=== PATIENT | male | born 1975 | race Caucasian/White ===

== ENCOUNTER 2017-09-10 12:42 | Emergency (ER) | payer MEDICAID, OTHER ==
[~2017-09-10] VITALS: Ht 177.8 cm; Wt 103.2 kg
[2017-09-10 12:47] VITALS: BP 132/75
[2017-09-10 13:11] LABS: BASOPHILS % (AUTO) 0.1 % (0-1); EOSINOPHILS # (AUTO) 0.2 X10'3 (0-0.9); EOSINOPHILS % (AUTO) 3.6 % (0-6); HEMATOCRIT 38.5 % (42.0-52.0); HEMOGLOBIN 13.5 g/dl (14.0-17.9); LYMPHOCYTES # (AUTO) 1.2 X10'3 (1.1-4.8); MEAN CORPUSCULAR HEMOGLOBIN 34.1 PG (27.0-31.0); MEAN CORPUSCULAR VOLUME 97.6 FL (78-98); MEAN PLATELET VOLUME 6.4 FL (7.4-10.4); MONOCYTES # (AUTO) 0.6 X10'3 (0-0.9); MONOCYTES % (AUTO) 10.6 % (2-12); NEUTROPHILS # (AUTO) 3.8 X10'3 (1.8-7.7); NEUTROPHILS % (AUTO) 64.7 % (42-75); PLATELET COUNT 362 X10'3 (140-440); RED BLOOD COUNT 3.94 X10'6 (4.70-6.10); RED CELL DISTRIBUTION WIDTH 13.3 % (11.5-14.5); WHITE BLOOD COUNT 5.8 X10'3 (4.5-11.0)
[2017-09-10 13:15] LABS: CLARITY,URINE CLEAR (Clear); COLOR,URINE STRAW (Yellow); GLUCOSE, URINE NEGATIVE (Neg); KETONES,URINE NEGATIVE (Neg); LEUKOCYTE ESTERASE ,URINE NEGATIVE (Neg); NITRITES, URINE NEGATIVE (Neg); OCCULT BLOOD,URINE NEGATIVE (Neg); PROTEIN,URINE NEGATIVE (Neg); UROBILINOGEN,URINE 0.2 E.U/dL (0.2-1.0)
[2017-09-10 13:28] LABS: UA COLLECTION TYPE CLN CATCH MIDSTREAM
[2017-09-10 13:29] LABS: PROTHROMBIN TIME 10.4 SECONDS (9.0-12.0)
[2017-09-10 13:35] LABS: ALANINE AMINOTRANSFERASE 28 U/L (12-78); ALBUMIN 3.1 G/DL (3.4-5.0); ALBUMIN/GLOBULIN RATIO 0.8 (1.1-1.5); ALKALINE PHOSPHATASE 62 IU/L (46-116); ANION GAP 8 (8-16); ASPARTATE AMINO TRANSFERASE 23 U/L (10-37); BILIRUBIN,TOTAL 0.5 MG/DL (0.1-1.0); BLOOD UREA NITROGEN 9 MG/DL (7-18); CALCIUM 8.7 MG/DL (8.5-10.1); CHLORIDE 100 MMOL/L (99-107); CREATININE 0.82 MG/DL (0.60-1.10); GLUCOSE 107 MG/DL (70-104); POTASSIUM 3.9 MMOL/L (3.5-5.1); SODIUM 137 MMOL/L (135-145); TOTAL CARBON DIOXIDE 28.9 MMOL/L (24-32); TOTAL PROTEIN 6.9 G/DL (6.4-8.2); eGFR > 90 ML/MIN
== END 2017-09-10 14:24 | disposition home or self-care (01) ==
LOC: ER 12:43
DX: R07.81 Pleurodynia (principal)
CPT/HCPCS: 36415; 71100; 80053; 81003; 85025; 85610; 99285

== ENCOUNTER 2019-07-06 17:15 | Emergency (ER) | payer MEDICAID ==
[~2019-07-06] VITALS: Ht 177.8 cm; Wt 97.7 kg
[~2019-07-06 17:15] MED LIST: DOXY100T2 PO
--- NOTE | 2019-07-06 17:56 | NUR ---
Poison control contacted and received following recommendations: Monitor observe pt for next 5-6 hours for respiratory depressio, hypotension and seizures. Draw Tylenol level after 4 hours from reported time of ingestion and call back for further recommendtions if level >50. Provider Anderson Coleman [employer] provided recommendations.
[2019-07-06] MEDS ORDERED: ondansetron 4mg rapidly disintigrating tab PO ONE (19:00)
[2019-07-06 19:18] LABS: BASOPHILS % (AUTO) 0.2 % (0-1); EOSINOPHILS # (AUTO) 0.1 X10'3 (0-0.9); EOSINOPHILS % (AUTO) 0.7 % (0-6); HEMATOCRIT 51.6 % (42.0-52.0); HEMOGLOBIN 17.9 g/dl (14.0-17.9); LYMPHOCYTES # (AUTO) 1.8 X10'3 (1.1-4.8); LYMPHOCYTES % (AUTO) 17.5 % (21-51); MEAN CORPUSCULAR HEMOGLOBIN 34.3 PG (27.0-31.0); MEAN CORPUSCULAR HGB CONC 34.7 g/dL (33.0-36.5); MEAN CORPUSCULAR VOLUME 98.9 FL (78-98); MEAN PLATELET VOLUME 6.8 FL (7.4-10.4); MONOCYTES # (AUTO) 0.9 X10'3 (0-0.9); MONOCYTES % (AUTO) 9.2 % (2-12); NEUTROPHILS # (AUTO) 7.4 X10'3 (1.8-7.7); NEUTROPHILS % (AUTO) 72.4 % (42-75); PLATELET COUNT 289 X10'3 (140-440); RED BLOOD COUNT 5.22 X10'6 (4.70-6.10); RED CELL DISTRIBUTION WIDTH 13.2 % (11.5-14.5); WHITE BLOOD COUNT 10.2 X10'3 (4.5-11.0)
[2019-07-06 19:22] LABS: CLARITY,URINE CLEAR (Clear); COLOR,URINE YELLOW (Yellow); GLUCOSE, URINE NEGATIVE (Neg); KETONES,URINE NEGATIVE (Neg); LEUKOCYTE ESTERASE ,URINE NEGATIVE (Neg); NITRITES, URINE NEGATIVE (Neg); OCCULT BLOOD,URINE NEGATIVE (Neg); PROTEIN,URINE NEGATIVE (Neg); UROBILINOGEN,URINE 0.2 E.U/dL (0.2-1.0)
[2019-07-06] MEDS ORDERED: NO HOME MEDS (19:24)
[2019-07-06 19:26] LABS: UA COLLECTION TYPE VOIDED
[2019-07-06 19:35] LABS: URINE AMPHETAMINE SCREEN NEGATIVE (Neg); URINE BARBITUATE SCREEN NEGATIVE (Neg); URINE BENZODIAZEPINES SCREEN POSITIVE (Neg); URINE CANNABINOID SCREEN NEGATIVE (Neg); URINE COCAINE SCREEN NEGATIVE (Neg); URINE METHADONE SCREEN NEGATIVE (Neg); URINE OPIATE SCREEN NEGATIVE (Neg); URINE PHENCYCLIDINE SCREEN NEGATIVE (Neg)
--- NOTE | 2019-07-06 19:37 | NUR ---
Pt. transferred to OF bed 25 from ED room 14 at this time via wheelchair.
[2019-07-06 20:27] LABS: ACETAMINOPHEN 22.2 UG/ML (10-30); ALANINE AMINOTRANSFERASE 48 U/L (12-78); ALBUMIN 3.8 G/DL (3.4-5.0); ALBUMIN/GLOBULIN RATIO 0.9 (1.1-1.5); ALKALINE PHOSPHATASE 96 IU/L (46-116); ANION GAP 12 (8-16); ASPARTATE AMINO TRANSFERASE 34 U/L (10-37); BLOOD UREA NITROGEN 7 MG/DL (7-18); CALCIUM 9.6 MG/DL (8.5-10.1); CHLORIDE 101 MMOL/L (99-107); CREATININE 0.87 MG/DL (0.60-1.10); ETHANOL < 0.010 GM/DL (0.0-0.010); GLUCOSE 102 MG/DL (70-104); POTASSIUM 3.8 MMOL/L (3.5-5.1); SODIUM 137 MMOL/L (135-145); TOTAL CARBON DIOXIDE 24.3 MMOL/L (24-32); TOTAL PROTEIN 8.1 G/DL (6.4-8.2); eGFR > 90 ML/MIN
[2019-07-06 20:34] LABS: VALPROATE < 3.0 UG/ML (50-100)
[2019-07-07 00:01] LABS: ACETAMINOPHEN 6.5 UG/ML (10-30); ALANINE AMINOTRANSFERASE 48 U/L (12-78); ALBUMIN 3.6 G/DL (3.4-5.0); ALBUMIN/GLOBULIN RATIO 0.9 (1.1-1.5); ALKALINE PHOSPHATASE 90 IU/L (46-116); ASPARTATE AMINO TRANSFERASE 28 U/L (10-37); BILIRUBIN,DIRECT 0.2 MG/DL (0-0.3); BILIRUBIN,TOTAL 0.9 MG/DL (0.1-1.0); TOTAL PROTEIN 7.4 G/DL (6.4-8.2)
--- NOTE | 2019-07-07 01:24 | NUR ---
Follow up call received from [facility]. No further recommendations made at this time.
--- NOTE | 2019-07-07 04:25 | NUR ---
Spoke with Dr. Almeida about pt's stable VS and current status. Dr. cerrato pt to be off observation.
--- NOTE | 2019-07-07 07:00 | NUR ---
pt is resting. no concerns at this time
--- NOTE | 2019-07-07 08:00 | NUR ---
pt is resting. no concerns at this time
--- NOTE | 2019-07-07 09:00 | NUR ---
pt is resting. no concerns at this time
--- NOTE | 2019-07-07 10:14 | NUR ---
pt's father is visiting
[2019-07-07] MEDS ORDERED: nicotine 21mg patch - 24 hr TD ONE (10:15)
--- NOTE | 2019-07-07 11:00 | NUR ---
pt is resting. no concerns at this time. family at bedside.
--- NOTE | 2019-07-07 12:00 | NUR ---
pt is resting. no concerns at this time. family at bedside
--- NOTE | 2019-07-07 13:00 | NUR ---
pt is resting. no concerns at this time. family at bedside
--- NOTE | 2019-07-07 14:00 | NUR ---
pt is resting. no concerns at this time. family at bedside
[2019-07-07] MEDS ORDERED: ibuprofen tablet 400 MG TABLET PO PRN (14:50)
--- NOTE | 2019-07-07 15:01 | NUR ---
Patient sitting up on edge of bed, no signs of distress noted. Given motrin PRN for pain per MD order (See EMAR).
--- NOTE | 2019-07-07 16:00 | NUR ---
pt is resting in his room
--- NOTE | 2019-07-07 17:00 | NUR ---
pt is resting in his bed. no issues at this time. just waiting placement
--- NOTE | 2019-07-07 18:28 | NUR ---
recvd report, pt is sitting in bed eating dinner. Pt states he is very depressed and suicidal, "I guess they wanna send me to the crazy house, where suicidal people go, I probably should have lied but I told them the truth about how Im feeling." Pt is depressed, hopeless, linear thought process, awaiting placement.
[2019-07-07] MEDS: traZODone 50mg tablet PO SCH ×2 (20:15→21:22)
--- NOTE | 2019-07-07 21:23 | NUR ---
pt c/o not being able to sleep, prn trazadone given and repeated, pt states he feels it is helping with depression "Well I guess I just laughed but Im feeling frustrated that I cant sleep." pt is laying in bed reading a book
--- NOTE | 2019-07-07 22:26 | NUR ---
recvd call from [facility], pt has been accepted at [facility] in the morning, per Dr Brody.
--- NOTE | 2019-07-07 22:30 | NUR ---
pt laying in bed sleeping no s/s distress
--- NOTE | 2019-07-08 00:37 | NUR ---
Pt is restless, sleep is interrupted he wakes up and reads for a little bit and goes back to sleep.
--- NOTE | 2019-07-08 02:30 | NUR ---
pt laying on his left side rr even and unlabored no s/s distress
--- NOTE | 2019-07-08 04:58 | NUR ---
Pt is awake using the restroom.
[2019-07-08 05:52] VITALS: BP 133/98
== END 2019-07-08 09:39 | disposition home or self-care (01) ==
LOC: ER 17:16
DX: R45.851 Suicidal ideations (principal); F31.9 Bipolar disorder, unspecified; F10.10 Alcohol abuse, uncomplicated; Y90.0 Blood alcohol level of less than 20 mg/100 ml
CPT/HCPCS: 36415; 80053; 80076; 80164; 80178; 80305; 80320; 80329; 81003; 84443; 85025; 93005; 99285

== ENCOUNTER 2019-10-17 13:20 | Emergency (ER) | payer MEDICAID ==
[~2019-10-17] VITALS: Ht 177.8 cm; Wt 90.9 kg
[~2019-10-17 13:20] MED LIST changes: +ATOR40TA71 PO; -DOXY100T2 PO; +HYDR50TA65 PO; +NO HOME MEDS
[2019-10-17 13:23] VITALS: BP 168/100
== END 2019-10-17 13:56 | disposition left against medical advice (07) ==
LOC: ER 13:20
DX: F41.9 Anxiety disorder, unspecified (principal); Z53.21 Procedure and treatment not carried out due to patient leaving prior to being seen by health care provider

== ENCOUNTER 2019-10-23 10:05 | Emergency (ER) | payer MEDICAID ==
[~2019-10-23] VITALS: Ht 177.8 cm; Wt 9.1 kg
[2019-10-23 10:58] LABS: BASOPHILS % (AUTO) 0.1 % (0-1); EOSINOPHILS # (AUTO) 0.1 X10'3 (0-0.9); EOSINOPHILS % (AUTO) 0.8 % (0-6); HEMATOCRIT 46.4 % (42.0-52.0); LYMPHOCYTES # (AUTO) 1.1 X10'3 (1.1-4.8); LYMPHOCYTES % (AUTO) 14.9 % (21-51); MEAN CORPUSCULAR HEMOGLOBIN 34.3 PG (27.0-31.0); MEAN CORPUSCULAR HGB CONC 34.5 g/dL (33.0-36.5); MEAN CORPUSCULAR VOLUME 99.3 FL (78-98); MEAN PLATELET VOLUME 6.5 FL (7.4-10.4); MONOCYTES # (AUTO) 0.8 X10'3 (0-0.9); MONOCYTES % (AUTO) 10.6 % (2-12); NEUTROPHILS # (AUTO) 5.5 X10'3 (1.8-7.7); NEUTROPHILS % (AUTO) 73.6 % (42-75); PLATELET COUNT 345 X10'3 (140-440); RED BLOOD COUNT 4.68 X10'6 (4.70-6.10); RED CELL DISTRIBUTION WIDTH 14.4 % (11.5-14.5); WHITE BLOOD COUNT 7.5 X10'3 (4.5-11.0)
[2019-10-23 11:08] LABS: ALANINE AMINOTRANSFERASE 41 U/L (12-78); ALBUMIN 3.3 G/DL (3.4-5.0); ALBUMIN/GLOBULIN RATIO 0.8 (1.1-1.5); ALKALINE PHOSPHATASE 110 IU/L (46-116); ANION GAP 7 (8-16); ASPARTATE AMINO TRANSFERASE 41 U/L (10-37); BILIRUBIN,TOTAL 1.1 MG/DL (0.1-1.0); BLOOD UREA NITROGEN 9 MG/DL (7-18); CALCIUM 9.1 MG/DL (8.5-10.1); CHLORIDE 100 MMOL/L (99-107); CREATININE 1.12 MG/DL (0.60-1.10); GLUCOSE 119 MG/DL (70-104); POTASSIUM 4.2 MMOL/L (3.5-5.1); SODIUM 137 MMOL/L (135-145); TOTAL CARBON DIOXIDE 30.4 MMOL/L (24-32); TOTAL PROTEIN 7.4 G/DL (6.4-8.2); eGFR 71 ML/MIN
[2019-10-23 11:36] LABS: PARTIAL THROMBOPLASTIN TIME 27 SECONDS (22-32)
[2019-10-23 12:10] VITALS: BP 152/99
== END 2019-10-23 12:08 | disposition home or self-care (01) ==
LOC: ER 10:05
DX: F10.239 Alcohol dependence with withdrawal, unspecified (principal); I10 Essential (primary) hypertension; R19.7 Diarrhea, unspecified; R42 Dizziness and giddiness; Z79.899 Other long term (current) drug therapy; Y90.9 Presence of alcohol in blood, level not specified
CPT/HCPCS: 36415; 71045; 80053; 84484; 85025; 85610; 85730; 93005; 99285

== ENCOUNTER 2020-01-31 08:53 | Emergency (ER) | payer MEDICAID ==
[~2020-01-31] VITALS: Ht 157.5 cm; Wt 90.9 kg
[2020-01-31 08:59] VITALS: BP 154/103
== END 2020-01-31 09:50 | disposition left against medical advice (07) ==
LOC: ER 08:54
DX: R29.810 Facial weakness (principal); F41.0 Panic disorder [episodic paroxysmal anxiety]; Z98.890 Other specified postprocedural states; Z79.899 Other long term (current) drug therapy
CPT/HCPCS: 99281

== ENCOUNTER 2020-06-13 23:15 | Emergency (ER) | payer MEDICAID ==
[~2020-06-13] VITALS: Ht 177.8 cm; Wt 93.1 kg
--- NOTE | 2020-06-13 23:34 | NUR ---
MOTHER ADILSON [phone] FATHER GREGORY [phone]
[2020-06-14 00:05] LABS: BASOPHILS % (AUTO) 0.4 % (0-1); EOSINOPHILS # (AUTO) 0.1 X10'3 (0-0.9); EOSINOPHILS % (AUTO) 1.8 % (0-6); HEMATOCRIT 41.3 % (42.0-52.0); HEMOGLOBIN 14.2 g/dl (14.0-17.9); LYMPHOCYTES # (AUTO) 2.4 X10'3 (1.1-4.8); LYMPHOCYTES % (AUTO) 31.8 % (21-51); MEAN CORPUSCULAR HEMOGLOBIN 34.3 PG (27.0-31.0); MEAN CORPUSCULAR HGB CONC 34.4 g/dL (33.0-36.5); MEAN CORPUSCULAR VOLUME 99.8 FL (78-98); MEAN PLATELET VOLUME 7.2 FL (7.4-10.4); MONOCYTES # (AUTO) 0.8 X10'3 (0-0.9); MONOCYTES % (AUTO) 10.3 % (2-12); NEUTROPHILS # (AUTO) 4.1 X10'3 (1.8-7.7); NEUTROPHILS % (AUTO) 55.7 % (42-75); PLATELET COUNT 301 X10'3 (140-440); RED BLOOD COUNT 4.14 X10'6 (4.70-6.10); WHITE BLOOD COUNT 7.5 X10'3 (4.5-11.0)
[2020-06-14 00:19] LABS: ALANINE AMINOTRANSFERASE 51 U/L (12-78); ALBUMIN 3.5 G/DL (3.4-5.0); ALBUMIN/GLOBULIN RATIO 0.9 (1.1-1.5); ALKALINE PHOSPHATASE 99 IU/L (46-116); ANION GAP 7 (8-16); ASPARTATE AMINO TRANSFERASE 33 U/L (10-37); BILIRUBIN,TOTAL 0.4 MG/DL (0.1-1.0); BLOOD UREA NITROGEN 19 MG/DL (7-18); BUN/CREATININE RATIO 17.6 (5.4-32.0); CALCIUM 8.9 MG/DL (8.5-10.1); CHLORIDE 103 MMOL/L (99-107); CREATININE 1.08 MG/DL (0.60-1.10); GLUCOSE 115 MG/DL (70-104); POTASSIUM 3.7 MMOL/L (3.5-5.1); SODIUM 136 MMOL/L (135-145); TOTAL CARBON DIOXIDE 26.1 MMOL/L (24-32); TOTAL PROTEIN 7.2 G/DL (6.4-8.2); eGFR 74 ML/MIN
[2020-06-14] MEDS ORDERED: METO-539 PO ×2 (00:24→01:08)
[2020-06-14] MEDS ORDERED: metoprolol tartrate 50mg tablet PO ONE (00:25)
[2020-06-14 01:41] VITALS: BP 129/88
== END 2020-06-14 01:42 | disposition home or self-care (01) ==
LOC: ER 23:16
DX: I10 Essential (primary) hypertension (principal); I51.9 Heart disease, unspecified; F41.9 Anxiety disorder, unspecified; F31.9 Bipolar disorder, unspecified; F17.200 Nicotine dependence, unspecified, uncomplicated; F12.90 Cannabis use, unspecified, uncomplicated; Z98.890 Other specified postprocedural states; Z72.89 Other problems related to lifestyle; Z79.899 Other long term (current) drug therapy
CPT/HCPCS: 36415; 71045; 80053; 83880; 84484; 85025; 93005; 99285

== ENCOUNTER → 2021-03-27 | Emergency (ER) | payer MEDICAID ==
[~2021-03-27] VITALS: Ht 177.8 cm; Wt 100.0 kg
[2021-03-27 02:17] VITALS: BP 160/111
== END | disposition left against medical advice (07) ==
LOC: ER 02:12
DX: R00.2 Palpitations (principal); Z53.21 Procedure and treatment not carried out due to patient leaving prior to being seen by health care provider
CPT/HCPCS: 71045; 93005

== ENCOUNTER 2021-04-07 13:58 | Emergency (ER) | payer MEDICAID ==
[~2021-04-07] VITALS: Ht 177.8 cm; Wt 102.0 kg
[2021-04-07 15:31] VITALS: BP 160/104
[2021-04-07 16:07] LABS: BASOPHILS % (AUTO) 0.3 % (0-1); EOSINOPHILS % (AUTO) 0.1 % (0-6); HEMATOCRIT 45.6 % (42.0-52.0); HEMOGLOBIN 15.5 g/dl (14.0-17.9); LYMPHOCYTES # (AUTO) 1.9 X10'3 (1.1-4.8); LYMPHOCYTES % (AUTO) 22.5 % (21-51); MEAN CORPUSCULAR HEMOGLOBIN 34.5 PG (27.0-31.0); MEAN CORPUSCULAR VOLUME 101.4 FL (78-98); MEAN PLATELET VOLUME 6.8 FL (7.4-10.4); MONOCYTES # (AUTO) 0.7 X10'3 (0-0.9); NEUTROPHILS # (AUTO) 5.6 X10'3 (1.8-7.7); NEUTROPHILS % (AUTO) 68.1 % (42-75); PLATELET COUNT 277 X10'3 (140-440); RED CELL DISTRIBUTION WIDTH 14.1 % (11.5-14.5); WHITE BLOOD COUNT 8.3 X10'3 (4.5-11.0)
[2021-04-07 16:16] LABS: ALANINE AMINOTRANSFERASE 67 U/L (12-78); ALBUMIN 3.8 G/DL (3.4-5.0); ALBUMIN/GLOBULIN RATIO 0.8 (1.1-1.5); ALKALINE PHOSPHATASE 101 IU/L (46-116); ANION GAP 14 (8-16); ASPARTATE AMINO TRANSFERASE 79 U/L (10-37); BLOOD UREA NITROGEN 9 MG/DL (7-18); BUN/CREATININE RATIO 10.3 (5.4-32.0); CALCIUM 8.6 MG/DL (8.5-10.1); CHLORIDE 97 MMOL/L (99-107); CREATININE 0.87 MG/DL (0.60-1.10); GLUCOSE 97 MG/DL (70-104); LIPASE 106 U/L (73-393); POTASSIUM 3.8 MMOL/L (3.5-5.1); SODIUM 133 MMOL/L (135-145); TOTAL CARBON DIOXIDE 22.1 MMOL/L (24-32); TOTAL PROTEIN 8.4 G/DL (6.4-8.2); eGFR > 90 ML/MIN
[2021-04-07 16:27] LABS: CLARITY,URINE CLEAR (Clear); COLOR,URINE STRAW (Yellow); GLUCOSE, URINE NEGATIVE (Neg); KETONES,URINE NEGATIVE (Neg); LEUKOCYTE ESTERASE ,URINE NEGATIVE (Neg); NITRITES, URINE NEGATIVE (Neg); OCCULT BLOOD,URINE NEGATIVE (Neg); PROTEIN,URINE NEGATIVE (Neg); UA COLLECTION TYPE CLN CATCH MIDSTREAM; UROBILINOGEN,URINE 0.2 E.U/dL (0.2-1.0)
== END 2021-04-07 19:03 | disposition left against medical advice (07) ==
LOC: ER 14:03
DX: R10.84 Generalized abdominal pain (principal); I10 Essential (primary) hypertension; F41.9 Anxiety disorder, unspecified; F31.9 Bipolar disorder, unspecified; F12.90 Cannabis use, unspecified, uncomplicated; Z98.890 Other specified postprocedural states; Z72.89 Other problems related to lifestyle; Z79.899 Other long term (current) drug therapy
CPT/HCPCS: 36415; 80053; 81003; 83690; 85025; 93005; 99284

== ENCOUNTER 2021-07-12 11:24 | Emergency (ER) | payer MEDICAID ==
[~2021-07-12] VITALS: Ht 177.8 cm; Wt 94.5 kg
[2021-07-12 11:36] VITALS: BP 143/91
== END 2021-07-12 15:18 | disposition home or self-care (01) ==
LOC: ER 11:25
DX: H53.2 Diplopia (principal); H53.8 Other visual disturbances; I10 Essential (primary) hypertension; F41.9 Anxiety disorder, unspecified; F31.9 Bipolar disorder, unspecified; F12.90 Cannabis use, unspecified, uncomplicated; Z98.890 Other specified postprocedural states; Z72.89 Other problems related to lifestyle; Z79.899 Other long term (current) drug therapy
CPT/HCPCS: 99281

== ENCOUNTER 2022-07-31 10:22 | Emergency (ER) | payer MEDICAID ==
[~2022-07-31] VITALS: Ht 177.8 cm; Wt 95.5 kg
[2022-07-31 10:51] VITALS: BP 162/98
[2022-07-31 12:35] LABS: BASOPHILS % (AUTO) 0.8 % (0-1); EOSINOPHILS % (AUTO) 0.3 % (0-6); HEMATOCRIT 40.5 % (42.0-52.0); HEMOGLOBIN 13.6 g/dl (14.0-17.9); LYMPHOCYTES # (AUTO) 1.1 X10'3 (1.1-4.8); LYMPHOCYTES % (AUTO) 19.8 % (21-51); MEAN CORPUSCULAR HEMOGLOBIN 34.9 PG (27.0-31.0); MEAN CORPUSCULAR HGB CONC 33.6 g/dL (33.0-36.5); MEAN CORPUSCULAR VOLUME 103.7 FL (78-98); MEAN PLATELET VOLUME 7.7 FL (7.4-10.4); MONOCYTES # (AUTO) 0.5 X10'3 (0-0.9); MONOCYTES % (AUTO) 8.6 % (2-12); NEUTROPHILS # (AUTO) 3.8 X10'3 (1.8-7.7); NEUTROPHILS % (AUTO) 70.5 % (42-75); PLATELET COUNT 219 X10'3 (140-440); RED BLOOD COUNT 3.91 X10'6 (4.70-6.10); RED CELL DISTRIBUTION WIDTH 13.7 % (11.5-14.5); WHITE BLOOD COUNT 5.4 X10'3 (4.5-11.0)
[2022-07-31 12:46] LABS: ALANINE AMINOTRANSFERASE 81 U/L (12-78); ALBUMIN 3.9 G/DL (3.4-5.0); ALKALINE PHOSPHATASE 104 IU/L (46-116); ANION GAP 16 (8-16); ASPARTATE AMINO TRANSFERASE 103 U/L (10-37); BILIRUBIN,TOTAL 0.8 MG/DL (0.1-1.0); BLOOD UREA NITROGEN 6 MG/DL (7-18); BUN/CREATININE RATIO 7.3 (5.4-32.0); CHLORIDE 95 MMOL/L (99-107); CREATININE 0.82 MG/DL (0.60-1.10); GLUCOSE 117 MG/DL (70-104); POTASSIUM 3.3 MMOL/L (3.5-5.1); SODIUM 137 MMOL/L (135-145); TOTAL CARBON DIOXIDE 25.9 MMOL/L (24-32); TOTAL PROTEIN 7.8 G/DL (6.4-8.2); eGFR > 90 ML/MIN
[2022-07-31] MEDS ORDERED: normal saline 1000ML IV soln IVB ONE (17:00)
[2022-07-31] MEDS ORDERED: thiamine 100mg/ml 2ml inj. IV ONE (17:00)
[2022-07-31] MEDS ORDERED: folic acid 1mg/0.2ml inj IV ONE (17:01)
--- NOTE | 2022-07-31 17:30 | NUR ---
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
[2022-07-31] MEDS ORDERED: LORazepam 2 mg/ml vial IV ONE (17:45)
[2022-07-31] MEDS ORDERED: LORA-269 PO (17:51)
[2022-07-31] MEDS ORDERED: GABA100C PO (17:51)
[2022-07-31] MEDS ORDERED: ONDA4TAB12 PO (17:51)
== END 2022-07-31 19:03 | disposition home or self-care (01) ==
LOC: ER 10:23
DX: F10.930 Alcohol use, unspecified with withdrawal, uncomplicated (principal); R14.0 Abdominal distension (gaseous); I10 Essential (primary) hypertension; F41.9 Anxiety disorder, unspecified; F31.9 Bipolar disorder, unspecified; F12.10 Cannabis abuse, uncomplicated; Z79.899 Other long term (current) drug therapy; Z79.1 Long term (current) use of non-steroidal anti-inflammatories (NSAID)
CPT/HCPCS: 36415; 76700; 80053; 85025; 96361; 96374; 96375; 99285; J2060; J3411; J3490; J7030

== ENCOUNTER → 2023-12-26 | Outpatient (CLI) | payer MEDICAID ==
[~2023-12-26] MED LIST changes: +GABA100C PO; +LORA-269 PO; +ONDA-243 PO
== END | disposition home or self-care (01) ==
LOC: MRI 15:14
PROVIDERS: ATTEND Student in an Organized Health Care Education/Training Program
DX: M75.102 Unspecified rotator cuff tear or rupture of left shoulder, not specified as traumatic (principal); M25.812 Other specified joint disorders, left shoulder; M25.512 Pain in left shoulder
CPT/HCPCS: 73221

== ENCOUNTER 2024-01-18 06:51 | Outpatient (CLI) | payer MEDICAID ==
[~2024-01-18 06:51] MED LIST changes: +GADOTERATE MEGLUMINE 7.5 MMOL/15 ML VIAL IV ONE; +LIDOcaine 1% 30ml preserv. free vial ONE; +LIDOcaine 1%/PF 5ML 10 MG/ML VIAL ONE; +iohexol 300 MG/1 ML 50ml polymer ONE
== END 2024-01-18 23:59 | disposition home or self-care (01) ==
LOC: RAD 06:51 → EDSTATUS 07:30 → RAD 23:59
PROVIDERS: ATTEND Orthopaedic Surgery
DX: S43.432A Superior glenoid labrum lesion of left shoulder, initial encounter (principal); M19.012 Primary osteoarthritis, left shoulder; X58.XXXA Exposure to other specified factors, initial encounter; Y93.89 Activity, other specified; Y92.89 Other specified places as the place of occurrence of the external cause; Y99.8 Other external cause status
CPT/HCPCS: 23350; 73222; 77002; A9575; J3490; Q9967; 73040

== ENCOUNTER 2025-05-09 09:23 | Emergency (ER) | payer MEDICAID ==
[~2025-05-09] VITALS: Ht 180.3 cm; Wt 103.1 kg
[~2025-05-09 09:23] MED LIST changes: +ATOR20TA66 PO; -ATOR40TA71 PO; +BUPR1FIL17 SL; +CYCL-1 PO; +DICL50TA8 PO; +GABA-1405 PO; -GABA100C PO; -GADOTERATE MEGLUMINE 7.5 MMOL/15 ML VIAL IV ONE; -HYDR50TA65 PO; -LIDOcaine 1% 30ml preserv. free vial ONE; -LIDOcaine 1%/PF 5ML 10 MG/ML VIAL ONE; -LORA-269 PO; +LURA20TA2 PO; -NO HOME MEDS; -ONDA-243 PO; +PROP40TA72 PO; +SERT-433 PO; +TADA5TAB14 PO; +TAMS-55 PO; +TRAZ-251 PO; -iohexol 300 MG/1 ML 50ml polymer ONE
[2025-05-09 09:25] VITALS: TEMP 98.8
--- NOTE | 2025-05-09 10:11 | Physician Documentation ---
History of Present Illness ~ Chief Complaint: Flu Symptoms Stated Complaint: COLD SYMPTOMS Time Seen by MD: 09:34 OK to notify your PCP?: Yes (For) Primary Medical Doctor: [facility] Source: patient Mode of Arrival: POV Exam Limitations: no limitations HPI Reports having cough,sore throat, fever, congestion, body aches for the past 4 days. Denies N/V/D. He has taken robisussin flu this morning and did saline nasal rinses with relief. Medication Reconciliation Allergies: Coded Allergies: No Known Allergies (Unverified , 05/09/25) Scheduled Amoxicillin Trihydrate (Amoxicillin), 1 CAP PO Q12H Atorvastatin Calcium (Atorvastatin Calcium), 40 MG PO DAILY Buprenorphine Hcl/Naloxone Hcl (Suboxone 2 Mg-0.5 Mg Sl Film), 1 STRIP SL BID Diclofenac Sodium (Diclofenac Sodium), 1 TAB PO BID Gabapentin (Gabapentin), 1 TAB PO BID, (Reported) Lurasidone HCl (Lurasidone HCl), 40 MG PO HS Sertraline HCl (Sertraline HCl), 150 MG PO DAILY Tadalafil (Tadalafil), 1 TAB PO DAILY, (Reported) Tamsulosin Hcl* (Flomax*), 2 CAP PO QPM Trazodone HCl (Trazodone HCl), 100 MG PO DAILY@20 Scheduled PRN Cyclobenzaprine* (Cyclobenzaprine*), 5 MG PO BIDBL PRN for muscle spasms Propranolol Hcl* (Inderal*), 1 TAB PO BID PRN for PANIC ATTACKS, (Reported) Past Medical History Past Medical History: Hypertension, Sleep Apnea, Anxiety, Bipolar, Depression Past Surgical History: orthopedic surgeries Patient History: FH: bipolar disorder MOTHER, Onset:30's - 40 FH: coronary artery bypass surgery FH: heart disease FATHER MOTHER Alcohol Use: Heavy Drug Use: marijuana Lives In: Home Review of Systems All Other Systems at this time: Reviewed and Negative Physical Exam Vital Signs: RN Vital Signs have been reviewed: Yes, Temperature: 98.8, Heart Rate: 98, Respiratory Rate: 18, BP: 136/87, Pulse Oximetry: 96, Weight: 103.100 Oxygen Flow Rate: 0 Pulse Oximetry Reflects: adequate oxygenation Physical Exam General: Alert, no apparent distress. HEENT: PERRL, EOMI, no injection, moist mucous membranes. posterior pharynx erythema and exudates. Bilateral TM clear. Neck: Full range of motion. Respiratory: Lungs clear, no respiratory distress. Chest: No accessory muscle use. Cardiovascular: Regular rate and rhythm, no murmurs. Gastrointestinal: Soft, nontender, nondistended. Bowels sounds present. Extremities: Normal range of motion, no deformity. Neurologic: Oriented x4. Psychiatric: Normal mood and affect. Skin: Normal color, warm and dry. No edema, no ecchymosis. Progress Results/Orders Reviewed/noted all lab results: Yes Results/Orders Completed Orders - STARLA GLYNN Strep A Rapid (05/09/25 10:10) Amoxicillin Capsule (Trimox Capsule) (05/09/25 10:55) Vital Signs 05/09/25 05/09/25 09:25 09:38 Temp 98.8 Pulse 98 Resp 16 18 B/P (MAP) 136/87 Pulse Ox 96 O2 Flow Rate 0 Laboratory Tests Test 05/09/25 09:54 Group A Streptococcus Rapid Positive H Medical Decision Making Additional information obtaine: old records Findings Physical examis unremarkable except for posterior pharynx erythema and exudate. Rapid strep swab positive. Treatment with amoxicillin. d/c instructions reviewed. Differential Dx:Considerations: Include: Otitis media, Pharyngitis-Diphtheria, Pharyngitis-Streptoccal, Pharyngitis-Viral, Pnuemonitis Departure Disposition: 01 HOME / SELF CARE / HOMELESS Impression: Primary Impression: Strep pharyngitis Condition: Stable Discharge Instructions: Strep Throat, Adult, [id number] Additional Instructions: You have strep throat and are contagious for 24 hours after starting antibiotics. you can take acetaminophen or ibuprofen to help with fevers and pain. Stay well hydrated and rested. Return to the emergency department if your fevers and chills continue to worsen after 5 days, if you develop worsening cough with thick sputum, are unable to stay hydrated, or have any new or concerning concerning symptoms. Contact your primary care provider in the next 2-3 days for re-evaluation and to make sure your symptoms are improving. Departure Forms: Referrals: NO PRIMARY CARE PROVIDER (PCP) Prescriptions Amoxicillin Trihydrate (Amoxicillin) 500 Mg Capsule 1 CAP PO Q12H for 10 Days, #20 CAP Prov: STARLA GLYNN 05/09/25 Education Educated: Patient Educated regarding: diagnosis, treatment, prognosis, need for follow up Signature Scribe Signature: . Attestation: Scribed for Starla Glynn by Starla San NP . 05/09/25 11:00 STARLA GLYNN May 09, 2025 10:11
[2025-05-09 10:30] LABS: STREP A SCREEN POSITIVE (Neg)
[2025-05-09] MEDS ORDERED: AMOX-101 PO (10:58)
[2025-05-09 11:12] VITALS: BP 127/76; PULSE 98; RESP 18; O2SAT 97
== END 2025-05-09 11:15 | disposition home or self-care (01) ==
LOC: ER 09:24
DX: J02.0 Streptococcal pharyngitis (principal); F31.9 Bipolar disorder, unspecified; G47.30 Sleep apnea, unspecified; F41.9 Anxiety disorder, unspecified; I10 Essential (primary) hypertension; F12.90 Cannabis use, unspecified, uncomplicated; F10.90 Alcohol use, unspecified, uncomplicated; Y90.9 Presence of alcohol in blood, level not specified
CPT/HCPCS: 87880; 99283

== ENCOUNTER 2025-05-09 16:24 | Emergency (ER) | payer MEDICAID ==
[~2025-05-09] VITALS: Ht 177.8 cm; Wt 102.3 kg
[~2025-05-09 16:24] MED LIST changes: +AMOX-101 PO
[2025-05-09 16:25] VITALS: BP 122/74; PULSE 82; RESP 16; TEMP 98.4; O2SAT 98
--- NOTE | 2025-05-09 16:32 | Physician Documentation ---
History of Present Illness ~ Chief Complaint: Sore Throat Stated Complaint: FLU SYMPTOMS Time Seen by MD: 16:28 OK to notify your PCP?: Yes Primary Medical Doctor: [facility] HPI Returns to the ER for neck pain and increased nasal secretions. Reports that he woke up from his nap and had drool in his mask. Was positive for strep throat earlier today and treated with 1st dose of antibiotics. He reports that he has picked up antibiotics to continue with a prescription. Reports his mother made him come in. Reports feeling some throat tightness. Airway clear, has been speaking in full sentences. Medication Reconciliation Allergies: Coded Allergies: No Known Allergies (Unverified , 05/09/25) Scheduled Amoxicillin Trihydrate (Amoxicillin), 1 CAP PO Q12H Atorvastatin Calcium (Atorvastatin Calcium), 40 MG PO DAILY Buprenorphine Hcl/Naloxone Hcl (Suboxone 2 Mg-0.5 Mg Sl Film), 1 STRIP SL BID Diclofenac Sodium (Diclofenac Sodium), 1 TAB PO BID Gabapentin (Gabapentin), 1 TAB PO BID, (Reported) Lurasidone HCl (Lurasidone HCl), 40 MG PO HS Sertraline HCl (Sertraline HCl), 150 MG PO DAILY Tadalafil (Tadalafil), 1 TAB PO DAILY, (Reported) Tamsulosin Hcl* (Flomax*), 2 CAP PO QPM Trazodone HCl (Trazodone HCl), 100 MG PO DAILY@20 Scheduled PRN Cyclobenzaprine* (Cyclobenzaprine*), 5 MG PO BIDBL PRN for muscle spasms Propranolol Hcl* (Inderal*), 1 TAB PO BID PRN for PANIC ATTACKS, (Reported) Past Medical History Past Medical History: Hypertension, Sleep Apnea, Anxiety, Bipolar, Depression Past Surgical History: orthopedic surgeries Patient History: FH: bipolar disorder MOTHER, Onset:30's - 40 FH: coronary artery bypass surgery FH: heart disease FATHER MOTHER Alcohol Use: Heavy Drug Use: marijuana Lives In: Home Review of Systems All Other Systems at this time: Reviewed and Negative Physical Exam Vital Signs: RN Vital Signs have been reviewed: Yes, Temperature: 98.4, Source: Oral, Heart Rate: 82, Respiratory Rate: 16, BP: 122/74, Pulse Oximetry: 98, Weight: 102.270 Oxygen Flow Rate: 0 Pulse Oximetry Reflects: adequate oxygenation Physical Exam General: Alert, no distress. HEENT: No injection, moist mucous membranes. Posterior pharynx erythema and exudates. Tonsils 3+ bilaterally, uvula midline. Neck: Full range of motion. Anterior cervical lymphadenopathy Respiratory: No respiratory distress, equal chest rise and fall. Chest: No accessory muscle use. Cardiovascular: Regular rate and rhythm. Gastrointestinal: Nondistended. Extremities: Normal range of motion, no deformity. Neurologic: Oriented x4. Psychiatric: Normal mood and affect. Skin: Normal color, warm and dry. Progress Results/Orders Reviewed/noted all lab results: Yes Results/Orders Completed Orders - STARLA GLYNN Dexamethasone Inj (Decadron 10mg/Ml Inj) (05/09/25 16:28) Vital Signs 05/09/25 16:25 Temp 98.4 Pulse 82 Resp 16 B/P (MAP) 122/74 Pulse Ox 98 O2 Flow Rate 0 Medical Decision Making Additional information obtaine: old records Findings Has known strep throat, tested positive today, given 1st dose of antibiotic. I saw this patient earlier and his throat does appear more swollen than last time. Administered dexamethasone orally to help with the tonsillar swelling. Airway clear, patient is speaking in full sentences. Ear Diff. Dx: Considerations: Include: Other Eye Diff. Dx: Considerations: Include: Other Nose Diff. Dx: Considerations: Include: Other Tooth Diff. Dx: Considerations: Include: Other Throat Diff Dx: Considerations: Include: Epiglottitis, Jeremy's angina, Peritonsillar abscess, Thrush Departure Disposition: HOME / SELF CARE / HOMELESS Impression: Primary Impression: Throat swab culture positive Additional Impression: Strep pharyngitis Condition: Stable Discharge Instructions: Strep Throat, Adult Additional Instructions: Continue to take antibiotics as prescribed. You can use Tylenol and/or ibuprofen for pain and discomfort. You were given dexamethasone while in the department to help reduce some of the swelling. Referrals: NO PRIMARY CARE PROVIDER (PCP) Education Educated: Patient Educated regarding: diagnosis, treatment, prognosis, need for follow up Additional Comment Medical Screen Exam This patient recieved a medical screening examination. After reviewing the individual's medical complaints with presenting symptoms and performing an appropriate physical examination, it was determined that no immediate life- threatening emergency medical condition is present. This individual is also not a women having contractions. Signature Scribe Signature: . Attestation: Scribed for Starla Glynnp by Starla San NP . 05/09/25 16:35 Parts of this note were created using [employer] voice recognition software program. While efforts were made to correct any mistakes made by this voice recognition software program, nonsensical phrases may remain in this note. In addition, there may be errors and syntax, grammar, content and spelling. STARLA GLYNN ELECTRONIC SECURITY TECHNICIAN May 09, 2025 16:32
[2025-05-09] MEDS: dexamethasone sod phosphate 10mg/ml inj PO STA (16:41)
== END 2025-05-09 16:51 | disposition home or self-care (01) ==
LOC: ER 16:24
DX: J02.0 Streptococcal pharyngitis (principal); F31.9 Bipolar disorder, unspecified; G47.30 Sleep apnea, unspecified; F41.9 Anxiety disorder, unspecified; I10 Essential (primary) hypertension; F12.90 Cannabis use, unspecified, uncomplicated; F10.90 Alcohol use, unspecified, uncomplicated; Y90.9 Presence of alcohol in blood, level not specified
CPT/HCPCS: 99283; J1100

== ENCOUNTER 2025-05-26 04:50 | Emergency (ER) | payer MEDICAID ==
[~2025-05-26] VITALS: Ht 180.3 cm; Wt 100.3 kg
[~2025-05-26 04:50] MED LIST changes: -AMOX-101 PO
--- NOTE | 2025-05-26 05:05 | ELECTROCARDIOGRAPH REPORT ---
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
--- NOTE | 2025-05-26 05:29 | RADIOLOGY REPORT ---
CHEST RADIOGRAPH INDICATION: CP TECHNIQUE: Single frontal view of the chest was obtained COMPARISON: DI CHEST,SINGLE VIEW on DOS: 04/01/25, CHEST,SINGLE VIEW on DOS: 03/27/21, CHEST,SINGLE VIEW on DOS: 06/13/20, CHEST,SINGLE VIEW on DOS: 10/23/19 FINDINGS: Lines and Tubes: None Lungs: Clear Pleura: No effusion. No pneumothorax. Cardiomediastinal contours: Unremarkable Bones: Unremarkable IMPRESSION: 1. No acute disease.
--- NOTE | 2025-05-26 06:38 | Physician Documentation ---
History of Present Illness ~ Chief Complaint: Chest Wall Pain Stated Complaint: RIGHT SHOULDER,JOINT,LEFT SIDED RIB PAIN Time Seen by MD: 06:18 Primary Medical Doctor: [facility] Source: patient Mode of Arrival: POV HPI 49 y/o M with PMH HTN, HLD, tendonitis, depression, previous alcohol & cocaine use, previous R shoulder surgery, presenting with 2 hours of R shoulder and L chest wall pain. Per patient the pain woke him from sleep, he felt stiff in the R shoulder and L chest wall/upper flank pain. The L chest wall pain was worse with movement, but is resolving without treatment. His R shoulder is still stiff and painful with movement, he cannot lift the arm above 90 degrees. He does not recall trauma to the area. He has never had pain like this before. He also reported some stiffness in the L hand that has resolved. Fam Hx is significant for CT in his father and grandfather. Denies SOB, diaphoresis, leg swelling, abdominal pain. Tetanus within 5 Years?: No Allergies: Coded Allergies: No Known Allergies (Unverified , 05/09/25) Active Prescriptions See Medication Reconciliation Form. Medication Reconciliation Scheduled Atorvastatin Calcium (Atorvastatin Calcium), 40 MG PO DAILY Buprenorphine Hcl/Naloxone Hcl (Suboxone 2 Mg-0.5 Mg Sl Film), 1 STRIP SL BID Diclofenac Sodium (Diclofenac Sodium), 1 TAB PO BID Gabapentin (Gabapentin), 1 TAB PO BID, (Reported) Lurasidone HCl (Lurasidone HCl), 40 MG PO HS Sertraline HCl (Sertraline HCl), 150 MG PO DAILY Tadalafil (Tadalafil), 1 TAB PO DAILY, (Reported) Tamsulosin Hcl* (Flomax*), 2 CAP PO QPM Trazodone HCl (Trazodone HCl), 100 MG PO DAILY@20 Scheduled PRN Cyclobenzaprine* (Cyclobenzaprine*), 5 MG PO BIDBL PRN for muscle spasms Propranolol Hcl* (Inderal*), 1 TAB PO BID PRN for PANIC ATTACKS, (Reported) Discontinued Medications Amoxicillin Trihydrate (Amoxicillin), 1 CAP PO Q12H Discontinued Reason: Auto Discontinued Past Medical History Past Medical History: Hypertension, Sleep Apnea, Chronic Back Pain, Anxiety, Bipolar, Depression Past Surgical History: orthopedic surgeries (R shoulder) Patient History: FH: bipolar disorder MOTHER, Onset:30's - 40 FH: coronary artery bypass surgery FH: heart disease FATHER MOTHER Alcohol Use: Heavy Drug Use: marijuana Lives In: Home Review of Systems All Other Systems at this time: Reviewed and Negative Physical Exam Vital Signs: Temperature: 98.0, Source: Oral, Heart Rate: 70, Respiratory Rate: 15, BP: 122/79, Pulse Oximetry: 96, Weight: 100.300 Oxygen Flow Rate: 0 Physical Exam VITALS: Reviewed and as above. GENERAL: Alert, no apparent distress. HEENT: Normocephalic, atraumatic, PERRL, EOMI, dry mucosa, no erythema RESPIRATORY: Lungs clear, normal breath sounds, no respiratory distress. CHEST: No accessory muscle use, no retractions CV: Regular rate, rhythm, no edema, no murmur, No: JVD GI: Soft, non-tender, bowels sounds present, no rebound, guarding, or rigidity BACK: No CVA tenderness, or swelling MUSCULOSKELETAL No deformities, no edema. Mild tenderness to palpation of the R shoulder joint. Limited active ROM. Full passive ROM. L shoulder unremarkable. SKIN: Warm and dry, no rash NEURO: Oriented x4, No motor or sensory deficit PSYCH: Normal mood and affect, no agitation Progress Results/Orders Results/Orders Orders - RORY MCLEAN MD Shoulder, Complete (Min 2 Vws) (05/26/25 ) Completed Orders - RORY MCLEAN MD Drug Screen, Urine (05/26/25 06:39) Shoulder, Complete (Min 2 Vws) (05/26/25 ) Vital Signs 05/26/25 05/26/25 05/26/25 05/26/25 04:55 06:13 06:51 08:04 Temp 98.0 98.0 98.0 Pulse 69 70 76 Resp 16 15 16 B/P (MAP) 134/86 122/79 (93) 132/80 (97) Pulse Ox 98 96 97 O2 Flow Rate 0 0 0 Laboratory Tests Test 05/26/25 07:00 05/26/25 08:00 White Blood Count 8.0 Red Blood Count 4.18 L Hemoglobin 13.0 L Hematocrit 38.1 L Mean Corpuscular Volume 91.3 Mean Corpuscular Hemoglobin 31.1 H Mean Corpuscular Hemoglobin Concent 34.1 Red Cell Distribution Width 13.6 Platelet Count 409 Mean Platelet Volume 6.3 L Neutrophils (%) (Auto) 60.9 Lymphocytes (%) (Auto) 25.7 Monocytes (%) (Auto) 9.7 Eosinophils (%) (Auto) 2.9 Basophils (%) (Auto) 0.8 Neutrophils # (Auto) 4.9 Lymphocytes # (Auto) 2.1 Monocytes # (Auto) 0.8 Eosinophils # (Auto) 0.2 Basophils # (Auto) 0.1 CBC Comment Sodium Level 140 Potassium Level 4.3 Chloride Level 104 Carbon Dioxide Level 28.0 Anion Gap 8 Blood Urea Nitrogen 10 Creatinine 0.89 Estimated GFR/1.73 m2 90 BUN/Creatinine Ratio 11.2 Glucose Level 119 H Calcium Level 8.5 Troponin I High Sensitivity < 4 L Troponin I High Sens Percent Delta Troponin I Hi Sens Absolute Change Pro-B-Type Natriuretic Peptide < 30 Albumin 3.3 L Chemistry Comments Urine Opiates Screen Negative Urine Methadone Screen Negative Urine Fentanyl Screen Negative Urine Barbiturates Screen Negative Urine Phencyclidine Screen Negative Urine Amphetamines Screen Negative Urine Benzodiazepines Screen Positive Urine Cocaine Screen Negative Urine Cannabinoids Screen Negative Drug Screen Comment EKG/XRAY/CT/US/VASC/MRI EKG : Additional Comment EKG as interpreted by me indicating normal sinus rhythm with a rate of 69 beats per minute, normal axis, no ischemia Chest X-Ray : Additional Comments ED physician read: Normal cardiac silhouette, no infiltrates, normal bony structures, no acute airspace disease CHEST RADIOGRAPH INDICATION: CP TECHNIQUE: Single frontal view of the chest was obtained COMPARISON: None FINDINGS: Lines and Tubes: None Lungs: No focal consolidation. Pleura: No effusion. No pneumothorax. Cardiomediastinal contours: Unremarkable Bones: No acute osseous abnormality. IMPRESSION: 1. No acute cardiopulmonary disease. Bone/Soft Tissue X-Ray (Ext.) : Interpreted By: both Views: 2 VIEW Indication: pain Location: Shoulder Impression: normal Additional Comment EXAM: DI SHOULDER, COMPLETE (MIN 2 VWS) HISTORY:: R shoulder pain. COMPARISON: None TECHNIQUE:: 2 radiographs of the right shoulder. FINDINGS: No acute fracture or dislocation. Normal alignment in the glenohumeral joint. Mild AC joint arthrosis. IMPRESSION: 1. No acute osseous abnormality. 2. Mild acromioclavicular joint arthrosis. Heart Score: Heart Score Response (Comments) Value History Slightly Suspicious 0 Age 45-64 1 Risk Factors 1 or 2 risk factors 1 Total 2 Medical Decision Making Differential Dx:Considerations: Include: Chest wall contusion, Myocardial contusion, Pulmonary contusion, Rib fracture, Other Departure Disposition: HOME / SELF CARE / HOMELESS Impression: Primary Impression: Arthritis of right shoulder Additional Impression: Muscle spasm Condition: Improved Discharge Instructions: Arthritis Additional Instructions: Follow up with your PCP in the next 1-2 weeks as needed. Return to the ED with any acutely worsening symptoms. Referrals: NO PRIMARY CARE PROVIDER (PCP) Education Educated: Patient Educated regarding: diagnosis RORY MCLEAN MD May 26, 2025 06:38
--- NOTE | 2025-05-26 07:08 | RADIOLOGY REPORT ---
EXAM: DI SHOULDER, COMPLETE (MIN 2 VWS) HISTORY:: R shoulder pain. COMPARISON: None TECHNIQUE:: 2 radiographs of the right shoulder. FINDINGS: No acute fracture or dislocation. Normal alignment in the glenohumeral joint. Mild AC joint arthrosis. IMPRESSION: 1. No acute osseous abnormality. 2. Mild acromioclavicular joint arthrosis.
[2025-05-26 07:19] LABS: MEAN PLATELET VOLUME 6.3 FL (7.4-10.4); RED CELL DISTRIBUTION WIDTH 13.6 % (11.5-14.5)
[2025-05-26 07:43] LABS: CREATININE 0.89 MG/DL (0.60-1.10); PRO BRAIN NATRIURETIC PEPTIDE < 30 PG/ML (0-125); TOTAL CARBON DIOXIDE 28.0 MMOL/L (24-32); eCRCL 105 ML/MIN; eGFR 90 ML/MIN
[2025-05-26 08:22] LABS: URINE AMPHETAMINE SCREEN NEGATIVE (Neg); URINE BARBITUATE SCREEN NEGATIVE (Neg); URINE BENZODIAZEPINES SCREEN POSITIVE (Neg); URINE CANNABINOID SCREEN NEGATIVE (Neg); URINE COCAINE SCREEN NEGATIVE (Neg); URINE METHADONE SCREEN NEGATIVE (Neg); URINE OPIATE SCREEN NEGATIVE (Neg); URINE PHENCYCLIDINE SCREEN NEGATIVE (Neg)
[2025-05-26 09:19] VITALS: BP 125/80; PULSE 73; RESP 16; TEMP 98.9; O2SAT 98
== END 2025-05-26 09:27 | disposition home or self-care (01) ==
LOC: ER 04:51
DX: M19.011 Primary osteoarthritis, right shoulder (principal); M62.838 Other muscle spasm; I10 Essential (primary) hypertension; F12.90 Cannabis use, unspecified, uncomplicated; G89.29 Other chronic pain; G47.30 Sleep apnea, unspecified; F41.9 Anxiety disorder, unspecified; E78.5 Hyperlipidemia, unspecified; F31.9 Bipolar disorder, unspecified; Z79.899 Other long term (current) drug therapy; Z98.890 Other specified postprocedural states
CPT/HCPCS: 36415; 71045; 73030; 80048; 80305; 83880; 84484; 85025; 93005; 99285